=== PATIENT | female | born 1995 | race Caucasian/White ===

== ENCOUNTER 2024-02-21 05:10 | Observation (INO) ==
[2024-02-21 06:53] LABS: BASOPHILS % (AUTO) 0.2 %; EOSINOPHILS # (AUTO) 0.1 10^3/uL (0.0-0.7); EOSINOPHILS % (AUTO) 0.7 %; HCT - HEMATOCRIT 22.8 % (37.0-47.0); HGB - HEMOGLOBIN 7.7 g/dL (12.0-16.0); LYMPHOCYTES # (AUTO) 1.8 10^3/uL (1.5-3.5); LYMPHOCYTES % (AUTO) 17.7 %; MEAN CORPUSCULAR HEMOGLOBIN 32.1 pg (27.0-31.0); MEAN CORPUSCULAR HGB CONC 33.8 g/dL (32.0-36.0); MEAN PLATELET VOLUME 9.9 fL (7.9-10.8); MONOCYTES # (AUTO) 0.7 10^3/uL (0.0-1.0); NEUTROPHILS # (AUTO) 7.4 10^3/uL (1.5-6.6); NEUTROPHILS % (AUTO) 73.4 %; PLT - PLATELET COUNT 255 10^3/uL (130-450); RED CELL DISTRIBUTION WIDTH 13.7 % (12.0-15.0); WHITE BLOOD COUNT 10.1 x10^3/uL (4.8-10.8)
[2024-02-21] MEDS ORDERED: SODIUM CHLORIDE FLUSH 0.9% 10 ML SYRINGE IVP PRN ×2 (08:06→08:15)
[2024-02-21] MEDS ORDERED: CALCIUM CARBONATE CHEW 500 MG TABLET PO PRN (08:15)
[2024-02-21] MEDS ORDERED: ONDANSETRON ODT 4 MG TABLET PO PRN (08:15)
[2024-02-21 08:50] LABS: PARTIAL THROMBOPLASTIN TIME 24.6 secs (24.9-33.3)
[2024-02-21 08:54] LABS: INR 1.1 (0.8-1.2); PT - PROTHROMBIN TIME 11.6 secs (9.9-12.6)
[2024-02-21] MEDS ORDERED: SODIUM CHLORIDE FLUSH 0.9% 10 ML SYRINGE IVP SCH (09:00)
--- NOTE | 2024-02-21 09:31 | HISTORY & PHYSICAL EXAMINATION ---
Admit History Visit Reason Visit Reason: Other (vaginal bleeding) Smoking Status: Never smoker Other Maternal History Other Maternal History: Heather is a 28 yo at 20w2d who presented this morning with vaginal bleeding. She is being admitted for observation for blood transfusion as well as further monitoring of bleeding. Heather has a known subchorionic hemorrhage and has intermittent episodes of bleeding throughout thus far. She reports daily light bleeding, but tonight, had large gush which she estimates what approximately 1/2 cup of blood. Continue light bleeding after that. She reports very mild cramping which is not new. Also some pain in her right mid back, feels like a muscle cramp. Denies SOB, dizziness, dysuria. She has been seen in our office multiple times for bleeding as well as at . She has an MFM consult next week on 02/27. Heather reports that while at , inpatient admission at 22 weeks was suggested in case of need for delivery. Termination of was also offered as an option, however, Heather is not interested in termination. FHTs present and normal on admission. HPI Current : Vital Signs Temperature 98.1 F 02/21/24 05:27 Pulse Rate 87 02/21/24 05:27 Respiratory Rate 16 02/21/24 05:27 Blood Pressure 116/69 02/21/24 05:27 O2 Saturation 99 02/21/24 05:27 Meds/Allgy Home Medications Ambulatory Orders Medication Instructions Recorded Confirmed vits no.126-ferrous fum tab PO 01/01/24 02/19/24 28 mg iron-folic acid 800 mcg tablet (Classic ) acetaminophen 325 mg tablet 325 mg PO Q6H PRN 02/01/24 02/19/24 (Tylenol) acetaminophen 500 mg tablet 500 mg PO Q6H PRN 02/01/24 02/19/24 (Tylenol Extra Strength) progesterone micronized 200 mg 200 mg vaginal QPM #30 caps 02/09/24 02/19/24 capsule ferrous gluconate 240 mg (27 mg 240 mg PO QDAY #90 tabs 02/17/24 02/19/24 iron) tablet (Ferate) Allergies Allergies Allergy/AdvReac Type Severity Reaction Status Date / Time No Known Drug Allergies Allergy Verified 02/03/24 17:30 [facility] Social History Social History (Updated 02/01/24 @ 08:18 by Erma Torres RN) Smoking Status: Never smoker Living arrangement: At home Marital Status: Single Living Condition: With spouse/s.o. Support Person: No Relationship: Do you feel safe in your home environment?: Yes Suffered physical, verbal, emotional, or financial abuse?: No History of Abuse: No ETOH Use: None Substance Use: denies use POLST Patient has POLST: No Physical Abdominal Exam Vital Signs: Temp Pulse Resp BP Pulse Ox 98.1 F 87 16 116/69 99 02/21/24 05:27 02/21/24 05:27 02/21/24 05:27 02/21/24 05:27 02/21/24 05:27 Other Notes Labor Progress Note/Additional Text: Gen: NAD Chest: non labored respirations Abd: gravid, non tender, no fundal tenderness Back: no CVA tenderness Spec: on speculum exam, approx 15cc of dark blood in vault and 1-2cm of thin clot at the external os. With removal of blood in vault, no further ongoing bleeding. SVE: gentle SVE performed, cervix soft but closed Plan for Labor Plan For Labor I expect patient to be DC'd or transferred within 96 hours.: Yes Conclusion/Plan Problem List (1) Vaginal bleeding during : (2) Subchorionic hemorrhage: (3) Anemia complicating : Plan - No ongoing heavy bleeding, however, given significant decrease in H/H, recommended admission for observation for possible blood transfusion as well as monitoring of bleeding. - Risks/benefits of blood transfusion were reviewed, as well as risk of not giving blood if she were to have further future significant bleeding episodes. She did accept blood transfusion today with plan for 2u pRBCs. - Strict pad counts Lab Results Lab results reviewed: Yes 02/21/24 06:38 Other Lab Results: Coag studies reviewed. Diagnostic Imaging Results Diagnostic Imaging Results: positive Other (Ultrasound obtained, report and images reviewed with increasing size of subchorionic hematoma.)
--- NOTE | 2024-02-21 10:06 | Ultrasound Report ---
PROCEDURE: US OB Follow up INDICATIONS: vaginal bleeding OUTSIDE/PRIOR DATING DATA: Last menstrual period (LMP): Unknown. LMP-based estimated date of delivery (BARI): Unknown. First dating scan (date and location): 02/01/2024. Estimated date of delivery (BARI) from first dating scan: 07/08/2024. TECHNIQUE: Real-time scanning was performed of the fetus, with image documentation and biometric measurements. Endovaginal scanning: Not performed. COMPARISON: 02/01/2024 FINDINGS: General: A single living intrauterine gestation is present. Presentation: Vertex Placenta: Placental position is posterior, without previa. Amniotic fluid index: 6.6 cm, low for gestational age. heart rate: 136 beats per minute. Maternal cervical canal: Closed and short measuring 2.4 cm with possible moving internal contents. Estimated gestational age from initial scan: 20 weeks, 2 days Other: There is a large anterior hemorrhage to 10 cm spanning the entire length of the gestational sa c. IMPRESSION: 1.Single live intrauterine consistent with 20 weeks and 2 days. 2.Large anterior hemorrhage measuring up to 10 cm spanning the entire length of the gestational sac. 3.Amniotic fluid index of 6.6 cm which is less than the 0.5th percentile. 4.Cervix is closed and shortened measuring 2.4 cm with possible moving internal contents. Agree with preliminary interpretation provided to the ordering provider by the ultrasound technologis t. Reviewed by: Obinna Valle MD on 02/21/2024 10:05 AM PST Approved by: Obinna Valle MD on 02/21/2024 10:05 AM PST Station ID: [id number]
--- NOTE | 2024-02-21 10:07 | Ultrasound Report ---
PROCEDURE: US OB Transvaginal INDICATIONS: cervical length OUTSIDE/PRIOR DATING DATA: Last menstrual period (LMP): Unknown. LMP-based estimated date of delivery (BARI): Unknown. First dating scan (date and location): 02/01/2024. Estimated date of delivery (BARI) from first dating scan: 07/08/2024. TECHNIQUE: Real-time scanning was performed of the fetus, with image documentation and biometric measurements. Endovaginal scanning: Not performed. COMPARISON: 02/01/2024 FINDINGS: General: A single living intrauterine gestation is present. Presentation: Vertex Placenta: Placental position is posterior, without previa. Amniotic fluid index: 6.6 cm, low for gestational age. heart rate: 136 beats per minute. Maternal cervical canal: Closed and short measuring 2.4 cm with possible moving internal contents. Estimated gestational age from initial scan: 20 weeks, 2 days Other: There is a large anterior hemorrhage to 10 cm spanning the entire length of the gestational sa c. IMPRESSION: 1.Single live intrauterine consistent with 20 weeks and 2 days. 2.Large anterior hemorrhage measuring up to 10 cm spanning the entire length of the gestational sac. 3.Amniotic fluid index of 6.6 cm which is less than the 0.5th percentile. 4.Cervix is closed and shortened measuring 2.4 cm with possible moving internal contents. Agree with preliminary interpretation provided to the ordering provider by the ultrasound technologis t. Reviewed by: Obinna Valle MD on 02/21/2024 10:06 AM PST Approved by: Obinna Valle MD on 02/21/2024 10:06 AM PST Station ID: [id number]
[2024-02-21] MEDS: diphenhydrAMINE 25 MG CAPSULE PO SCH (10:28)
[2024-02-21] MEDS: ACETAMINOPHEN 325 MG TABLET PO SCH (10:29)
[2024-02-21 14:09] VITALS: O2SAT 99
[2024-02-21] MEDS: ACETAMINOPHEN 500 MG TABLET PO PRN (16:51)
[2024-02-21 17:42] VITALS: TEMP 98.4
[2024-02-21 20:31] VITALS: BP 116/69
--- NOTE | 2024-02-21 21:39 | Discharge Summary ---
Discharge Summary Admit Date: 02/21/24 Discharge Date: 02/21/24 Discharging Provider: Kiet Peraza MD [facility] History of Present Illness: Admission Diagnosis: - SIUP at 20w2d - Vaginal bleeding in - BLood loss anemia Discharge Diagnosis: - Same Procedures: transfusion 2u pRBCs Hospital Course: Heather presented at 20w2d with vaginal bleeding in the setting of known subchorionic hemorrhage, has had multiple bleeding episodes throughout her thus far. Significant drop in H/H noted from prior values, therefore blood transfusion was recommended as well as further monitoring of bleeding. She received 2units of pRBCs, had no further heavy bleeding. Ultrasound was performed which showed increasing size of subchorionic hemorrhage. Possible termination of vs admission around viability was discussed with her during recent evaluation at . She is hopeful for admission around viability. With no further heavy bleeding, Heather was comfortable with discharge home this evening with strict bleeding precautions. Lives here in [place], close to hospital. She has follow up in our clinic on Monday as well as [facility] appointment next week. OBJECTIVE: Vital signs reviewed GENERAL: NAD CHEST: non labored respirations ABD: soft, non tender, gravid LAB & IMAGING STUDIES: See below PLAN: Plan for discharge home with follow up in clinic on Monday. Bleeding/anemia precautions reviewed. Consider repeat CBC on Monday. ALLERGIES Allergies Allergy/AdvReac Type Severity Reaction Status Date / Time No Known Drug Allergies Allergy Verified 02/03/24 17:30 MEDICATIONS Ambulatory Orders Medication Instructions Recorded Confirmed vits no.126-ferrous fum tab PO 01/01/24 02/19/24 28 mg iron-folic acid 800 mcg tablet (Classic ) acetaminophen 325 mg tablet 325 mg PO Q6H PRN 02/01/24 02/19/24 (Tylenol) acetaminophen 500 mg tablet 500 mg PO Q6H PRN 02/01/24 02/19/24 (Tylenol Extra Strength) progesterone micronized 200 mg 200 mg vaginal QPM #30 caps 02/09/24 02/19/24 capsule ferrous gluconate 240 mg (27 mg 240 mg PO QDAY #90 tabs 02/17/24 02/19/24 iron) tablet (Ferate) LABS 02/21/24 06:38 TIME SPENT Time Spent in Discharge (Minutes): 35 Discharge Plan Discharge Patient Disposition: Home, Self Care Activity Restrictions/Additional Instructions: Return to the hospital if experiencing heavy, persistent bleeding, soaking more than 1 pad an hour for 2 hours or if you experience symptoms of anemia such as shortness of breath or dizziness. Follow up on Monday for your next routine visit. Prescriptions: No Action progesterone micronized 200 mg capsule 200 mg vaginal QPM Qty: 30 2RF ferrous gluconate [Ferate] 240 mg (27 mg iron) tablet 240 mg PO QDAY Qty: 90 4RF Rx Instructions: any covered iron supplement is fine Classic 28 mg iron- 800 mcg tablet PO acetaminophen [Tylenol] 325 mg tablet 325 mg PO Q6H PRN acetaminophen [Tylenol Extra Strength] 500 mg tablet 500 mg PO Q6H PRN .
== END 2024-02-21 17:40 | disposition home or self-care (01) ==
LOC: WFO 05:10 → FBP 05:10 → WFO 09:02 → FBP 09:05 → WFO 17:40
PROVIDERS: ADMIT Obstetrics & Gynecology; ATTEND Obstetrics & Gynecology
DX: Z3A.20 20 weeks gestation of pregnancy; O46.8X2 Other antepartum hemorrhage, second trimester; D50.0 Iron deficiency anemia secondary to blood loss (chronic)

== ENCOUNTER 2025-01-01 16:07 | Inpatient (IN) ==
[2025-01-01] MEDS ORDERED: ACETAMINOPHEN 500 MG TABLET PO PRN (16:20)
[2025-01-01] MEDS ORDERED: METHYLERGONOVINE 0.2 MG/ML VIAL IM PRN (16:20)
[2025-01-01] MEDS ORDERED: LABETALOL 20 MG/4 ML SYRINGE IVP PRN ×3 (16:20)
[2025-01-01] MEDS ORDERED: TERBUTALINE 1 MG/ML VIAL SUBQ PRN (16:20)
[2025-01-01] MEDS ORDERED: ONDANSETRON 4 MG/2 ML VIAL IVP PRN (16:20)
[2025-01-01] MEDS ORDERED: CARBOPROST TROMETHAMINE 250 MCG/ML VIAL IM PRN (16:20)
[2025-01-01] MEDS ORDERED: fentaNYL 100 MCG/2 ML VIAL IVP PRN (16:20)
[2025-01-01] MEDS ORDERED: hydrALAZINE INJ 20 MG/ML VIAL IVP PRN ×2 (16:20)
[2025-01-01] MEDS ORDERED: ONDANSETRON ODT 4 MG TABLET PO PRN (16:20)
[2025-01-01] MEDS ORDERED: TRANEXAMIC ACID IN NACL 1,000 MG/100 ML BAG IV PRN (16:20)
[2025-01-01] MEDS ORDERED: SODIUM CHLORIDE FLUSH 0.9% 10 ML SYRINGE IVP PRN (16:20)
[2025-01-01] MEDS ORDERED: OXYTOCIN 10 UNIT/ML VIAL IM PRN (16:20)
[2025-01-01 16:51] LABS: HCT - HEMATOCRIT 36.2 % (37.0-47.0); HGB - HEMOGLOBIN 12.2 g/dL (12.0-16.0); MEAN PLATELET VOLUME 10.6 fL (7.9-10.8); NRBC ABSOLUTE COUNT (AUTO) 0.00 x10^3/uL; NUCLEATED RED BLOOD CELLS AUTO 0.0 /100WBC; PLT - PLATELET COUNT 223 10^3/uL (130-450); RED CELL DISTRIBUTION WIDTH 13.2 % (12.0-15.0)
[2025-01-01] MEDS ORDERED: SODIUM CHLORIDE FLUSH 0.9% 10 ML SYRINGE IVP SCH (17:00)
[2025-01-01 17:08] LABS: ALT ALANINE AMINOTRANSFERASE 13.0 IU/L (10-60); AST ASPARTATE AMINOTRANSFERASE 13.0 IU/L (10-42); BUN - BLOOD UREA NITROGEN 9.0 mg/dL (6-20); CARBON DIOXIDE - CO2 24.0 mmol/L (21-32); CREATININE 0.4 mg/dL (0.6-1.3); GFR - MDRD 190.0 (>89)
--- NOTE | 2025-01-01 18:16 | HISTORY & PHYSICAL EXAMINATION ---
Admit History Visit Reason Visit Reason: Other (Elective induction of labor) Smoking Status: Never smoker Other Maternal History Other Maternal History: HPI: Heather is a 29 yo at 39w3d by LMP c/w 1st trimester US who is admitted for elective induction of labor. Reports overall feeling well tonight. She had a membrane sweep in clinic yesterday, had just a little spotting. Occasional contractions but not really painful. Baby moving well. She was on the list for elective IOL at but there are several inductions ahead of her, opted for induction of labor here. Last growth US: 11/29/24 EFW 2950g, 89%tile, AC measuring 99%tile. monitoring form, copied from record: History of second trimester loss: Started with bleeding and persisted for many weeks until eventually labor. EFW 11/29: EFW 89 percentile, AC: 99th percentile. HC 50th percentile. Periumbilical pain: No identifiable cause. Pre- Weight: 146 lb BMI: 22 (25-35 pounds) Blood type: O+ Antibody: Negative CBC: PLT 253 13.0/38.5 RUB: Equivocal VZV: Immune HBsAg: negative HepC: NR RPR/AB-EIA: NR HIV: NR PAP:11/25/2023-normal per pt GC/CT: 06/19/2024 HSV: denies Genetic testing: MaterniT Neg; AFP- Negative Covid:declined 12/09/24 Flu:declined 12/09/24 FAS: Placenta:Anterior without previa. Venous lakes seen Cord:Three-vessel cord ÁNGEL:Normal, MVP: 5.4 cm EFW:273 g, 33rd percentile 50gm OGCT: 95 TDAP:10/15 Breast Pump:10/15 RSV: declines 12/17/24, discussed Beyfortus briefly. 3rd trimester CBC: 12.6/38.2/221 3rd trimester RPR NR GBS:12/09/24 Negative Delivery plan: 39 week induction at - scheduled for 01/01 Contraception: declines discussion 12/17 PE: Vitals signs reviewed in [facility] Gen: NAD Resp: non labored respirations Abd: gravid, non tender. EFW 3800g Ext: no LE edema SVE: 3/50/-2, moderate, posterior Bedside US: cephalic presentation confirmed monitoring: FHTs: 140s bpm baseline, + accel, - decel, mod variability [place]: irregular FHTs: Cat 1 Labs: T&S, CBC, CMP reviewed A/P: 29 yo at 39w3d: - Elective IOL - GBS neg - AC 99%tile We discussed IOL process and consent was reviewed and signed. Discussed options for initiating IOL, plan to start with pitocin given starting cervical exam and she does agree. We discussed possible AROM with next SVE in 4-6 hours. Pain management at her request - at this time not planning for pain meds/epidural. Kiet Peraza MD Meds/Allgy Home Medications Ambulatory Orders Medication Instructions Recorded Confirmed vits no.126-ferrous fum 1 tab PO DAILY 12/31/24 28 mg iron-folic acid 800 mcg tablet (Classic ) acetaminophen 325 mg tablet 325 mg PO Q6H PRN fever or pain 02/01/24 12/31/24 (Tylenol) ferrous gluconate 240 mg (27 mg 240 mg PO QDAY #90 tab s 07/17/24 12/31/24 iron) tablet (Ferate) magnesium PO 08/29/24 12/31/24 ascorbic acid (vitamin C) 500 mg 500 mg PO QDAY #30 ta bs 09/30/24 12/31/24 tablet cyanocobalamin-liver extract tablet tab PO 12/05/24 Allergies Allergies Allergy/AdvReac Type Severity Reaction Status Date / Time No Known Drug Allergies Allergy Verified 12/17/24 09:44 PFSH Active Problems All Active Problems (Updated 01/01/25 @ 16:20 by Kiet Peraza MD) 39 weeks gestation of (Acute) Anemia (Acute) Depression (Acute) Encounter for induction of labor (Acute) History of loss (Acute) Supervision of high risk , antepartum (Acute) Vaginal discharge (Acute) Medical History Medical History (Updated 01/01/25 @ 16:20 by Kiet Peraza MD) Parainfluenza virus infection (06/24/24) Surgical History Surgical History (Updated 07/04/24 @ 17:47 by Luana Schmidt MD) Cyst of eye Surgery as a child Family History Family History (Updated 06/04/24 @ 11:25 by Lisandra Baumann RN) Sister Kidney disease Social History Social History (Updated 10/15/24 @ 19:59 by Juan Antonio Hutchison MD) Smoking Status: Never smoker Do you dip or chew tobacco?: No Do you vape?: No Living arrangement: At home Marital Status: Single Living Condition: With spouse/s.o. Support Person: No Level: Independent Do you feel safe in your home environment?: Yes History of physical, verbal, emotional, or financial abuse?: No ETOH Use: None Substance Use: denies use Are you sexually active?: Yes Occupation - Current: [employer] Patient has POLST: No Plan for Labor Plan For Labor I expect patient to be DC'd or transferred within 96 hours.: Yes Conclusion/Plan Lab Results 01/01/25 16:35 01/01/25 16:35
[2025-01-01] MEDS: OXYTOCIN/SODIUM CHLORIDE 500 ML IV SCH (18:22)
[2025-01-01] MEDS: LACTATED RINGERS 1,000 ML IV PRN (18:22)
[2025-01-02] MEDS ORDERED: ROPIVACAINE 0.2% 200 MG/100 ML BAG EP ONE (02:26)
[2025-01-02] MEDS ORDERED: NALOXONE 0.4 MG/ML VIAL IVP PRN ×3 (03:48→12:16)
[2025-01-02] MEDS ORDERED: LACTATED RINGERS 500 ML IV ONE (03:48)
[2025-01-02] MEDS ORDERED: ROPIVACAINE 0.2% 200 MG/100 ML BAG EP PRN (03:48)
[2025-01-02] MEDS ORDERED: NALBUPHINE 10 MG/ML AMP IVP PRN (03:48)
[2025-01-02] MEDS ORDERED: ONDANSETRON 4 MG/2 ML VIAL IVP PRN (03:48)
[2025-01-02] MEDS ORDERED: METOCLOPRAMIDE 10 MG/2 ML VIAL IVP PRN (03:48)
--- NOTE | 2025-01-02 03:48 | ANESTHESIA PROCEDURE NOTE ---
Pre-Anesthesia VS, & Labs Diagnosis Surgical Diagnosis:: labor induction Procedure Procedure: labor epidural Vitals Vital Signs: Temp Resp BP 36.6 C 17 122/74 01/01/25 19:15 01/01/25 20:49 01/01/25 20:49 NPO NPO: Other Is Patient ?: Yes Lab Results Current Lab Results: Laboratory Tests 01/01/25 16:35: WBC 9.2, RBC 3.80 L, Hgb 12.2, Hct 36.2 L, MCV 95.3, MCH 32.1 H, MCHC 33.7, RDW 13.2, Plt Count 223, MPV 10.6, Neut # (Auto) 6.7 H, Lymph # (Auto) 1.6, Fleming # (Auto) 0.8, Eos # (Auto) 0.1, Baso # (Auto) 0.0, Absolute Nucleated RBC 0.00, Nucleated RBC % 0.0, Sodium 135, Potassium 3.6, Chloride 103, Carbon Dioxide 24, Anion Gap 8.0, BUN 9, Creatinine 0.4 L, Estimated GFR (MDRD) 190, Glucose 102, Calcium 9.3, Total Bilirubin 0.4, AST 13, ALT 13, Alkaline Phosphatase 109, Total Protein 6.7, Albumin 3.5, Globulin 3.2, Albumin/Globulin Ratio 1.1, Blood Type O POSITIVE, Antibody Screen NEGATIVE 01/01/25 16:35 01/01/25 16:35 Meds/Allgy Home Medications Ambulatory Orders Medication Instructions Recorded Confirmed vits no.126-ferrous fum 1 tab PO DAILY 12/31/24 28 mg iron-folic acid 800 mcg tablet (Classic ) acetaminophen 325 mg tablet 325 mg PO Q6H PRN fever or pain 02/01/24 12/31/24 (Tylenol) ferrous gluconate 240 mg (27 mg 240 mg PO QDAY #90 tab s 07/17/24 12/31/24 iron) tablet (Ferate) magnesium PO 08/29/24 12/31/24 ascorbic acid (vitamin C) 500 mg 500 mg PO QDAY #30 ta bs 09/30/24 12/31/24 tablet cyanocobalamin-liver extract tablet tab PO 12/05/24 Allergies Allergies Allergy/AdvReac Type Severity Reaction Status Date / Time No Known Drug Allergies Allergy Verified 12/17/24 09:44 PFSH Active Problems All Active Problems (Updated 01/01/25 @ 16:20 by Kiet Peraza MD) Encounter for induction of labor (Acute) 39 weeks gestation of (Acute) Vaginal discharge (Acute) History of loss (Acute) Supervision of high risk , antepartum (Acute) Anemia (Acute) Depression (Acute) Medical History Medical History (Updated 01/01/25 @ 16:20 by Kiet Peraza MD) Parainfluenza virus infection (06/24/24) Surgical History Surgical History (Updated 07/04/24 @ 17:47 by Luana Schmidt MD) Cyst of eye Surgery as a child Family History Family History (Updated 06/04/24 @ 11:25 by Lisandra Baumann RN) Sister Kidney disease Social History Social History (Updated 10/15/24 @ 19:59 by Juan Antonio Hutchison MD) Smoking Status: Never smoker Do you dip or chew tobacco?: No Do you vape?: No Living arrangement: At home Marital Status: Single Living Condition: With spouse/s.o. Support Person: No Level: Independent Do you feel safe in your home environment?: Yes History of physical, verbal, emotional, or financial abuse?: No ETOH Use: None Substance Use: denies use Are you sexually active?: Yes Occupation - Current: [employer] Patient has POLST: No Anesthesia Exam (Expanded) Exam General: Alert, Oriented x3 and Moderate distress Dental: WNL Mouth Opening: Greater than 4 Fingerbreadths Neck Mobility: Normal Mallampati classification: I Thyromental Distance: greater than 6 cm Respiratory: Lungs clear Cardiovascular: Regular rate Exam Exam Vital Signs: Vital Signs x48h Resp BP 01/01/25 20:49 17 122/74 Plan Plan Anesthesia Type: Epidural Consent for Procedure(s) Verified and Reviewed: Yes Code Status: Attempt Resuscitation ASA Classification ASA classification: 2-Mild systemic disease Is this case an emergency?: No
[2025-01-02] MEDS: ePHEDrine 50 MG/ML VIAL IVP PRN (04:20)
[2025-01-02] MEDS: CALCIUM CARBONATE CHEW 500 MG TABLET PO PRN (04:45)
--- NOTE | 2025-01-02 07:22 | PROVIDER PROGRESS NOTE ---
Labor Progress Note Labor Progress Note Labor Progress Note/Additional Text: I came to bedside at approximately 0020AM for AROM. Heather did agree to proceed. AROM performed with small amount of blood-tinged fluid. SVE at that time was 4/70/-2 and pitocin was at 4. I was called by RN at approximately 0135 that Heatehr was 8cm and feeling the urge to push and I was requested at bedside. At bedside, SVE found to be 5/80/-2. At this point, Heather decided that she would like an epidural. Pitocin was turned off to give Heather some relief as she was radha every 2 min and very uncomfortable. She has progressed overnight to 7/100/-1 with most recent RN exam. This morning, she has had intermittent Cat 2 FHTs with period of tachycardia and possible late decelerations. She was give IV fluid bolus, changed positions, and I requested that anesthesia assess as her blood pressures are below her base line (110's/60-70's). FHTs have now improved with resolved tachycardia, moderate variability and accelerations present. Requested that RN restart pitocin per protocol if contractions space out Kiet Peraza MD
[2025-01-02] MEDS: OXYTOCIN/SODIUM CHLORIDE 500 ML IV PRN (10:43)
[2025-01-02] MEDS ORDERED: LABETALOL 20 MG/4 ML SYRINGE IVP PRN ×4 (11:01→12:16)
[2025-01-02] MEDS ORDERED: IBUPROFEN 600 MG TABLET PO PRN ×2 (11:01→12:16)
[2025-01-02] MEDS ORDERED: oxyCODONE 5 MG TABLET PO PRN (11:01)
[2025-01-02] MEDS ORDERED: SIMETHICONE CHEW 80 MG TABLET PO PRN ×2 (11:01→12:16)
[2025-01-02] MEDS ORDERED: OXYTOCIN/SODIUM CHLORIDE 500 ML IV PRN ×2 (11:01→12:16)
[2025-01-02] MEDS ORDERED: ACETAMINOPHEN 500 MG TABLET PO PRN (11:01)
[2025-01-02] MEDS ORDERED: WITCH HAZEL/GLYCERIN 1 PAD TOP PRN (11:01)
[2025-01-02] MEDS ORDERED: HYDROCORTISONE 1% CREAM 28 GM TUBE TOP PRN (11:01)
[2025-01-02] MEDS ORDERED: LABETALOL 5 MG/1 ML 20 ML MDV IVP PRN ×2 (11:01→12:16)
[2025-01-02] MEDS ORDERED: hydrALAZINE INJ 20 MG/ML VIAL IVP PRN ×4 (11:01→12:16)
--- NOTE | 2025-01-02 11:13 | DELIVERY NOTE ---
OB Labor and Delivery Note Labor Labor: Induced by oxytocin Delivery Method Delivery Method: Spontaneous vaginal delivery Presentation Presentation: Vertex and KATHLEEN - right occiput anterior Nuchal Cord Nuchal Cord: Present (loose) Amniotic Fluid Description Amniotic Fluid Description: Clear Episiotomy Type Episiotomy Type: None Laceration Laceration: 2nd degree, Labial and Periurethral (bilateral) Suture Suture Size: 3-0 (rapide) Delivery Outcome Delivery Date: 01/02/25 Delivery Time: 10:39 Delivery Outcome: Livebirth Galt : Placed in direct skin contact with mother, Stimulated and Warmed sex: Female Cord Cord: 3 vessels Placenta Placenta: Intact Estimated Blood Loss Estimated Blood Loss (in cc): 150 Post Delivery Events Post Delivery Events: No post delivery events Delivery Comments (Free Text/Narrative) Delivery Comments (Free Text/Narrative): Heather presented for elective induction of labor. She was 3/50/-2 on presentation, and induction was started with pitocin at 1822pm. AROM was performed at 0020am and at that time she was 4cm. Pitocin was discontinued at 0202am due to frequent contractions and Heather's discomfort, desiring epidural at at that point. After that point, she progressed on her own mechanism. She was complete at 0913am and started pushing at 0930am. She pushed with excellent effort with steady progress and delivered at 1039am. With delivery of the head, a loose nuchal cord was noted. The anterior shoulder delivered easily with maternal effort and gentle downward pressure followed by the posterior shoulder and the remainder of the body. The infant was placed on the Heather's chest. The cord was clamped after it stopped pulsing, which was at about 5 mintues. Pitocin was started during this period. The cord was clamped times two and then cut by Heather's . Cord blood collected. The placenta was delivered intact with gentle traction on the cord. Good uterine tone noted. The bilateral periurethral lacertions were hemostatic and not repaired. A very small 2nd degree laceration was noted at hymenal ring and was reapproximated with a single figure of eight stitch of 3-0 Rapide. Perineal hemostasis noted. APGARS 8/9, weight pending.
--- NOTE | 2025-01-02 11:56 | ANESTHESIA PROCEDURE NOTE ---
Anesthesia Epidural Template Exam Epidural Medication Information: Epidural Medications Continuous Infusion Rate (mL/ 8 hr) Bolus Amount 5 Other Comments Other Comments: Nursing staff concerned tachycardia due to maternal hypotension. BP 108/65. T-10 level, patient reports pain with contractions 2/10. Epidural decreased to 7ml/hr.
[2025-01-02] MEDS: ACETAMINOPHEN 500 MG TABLET PO PRN (12:00)
--- NOTE | 2025-01-02 12:36 | PHARMACY PROGRESS NOTE ---
Best Possible Medication History Admit Date and Time: 01/01/25 [id number] Home Medications Medication Instructions Recorded Confirmed Type vits no.126-ferrous fum 1 tab PO DAILY 01/02/25 History 28 mg iron-folic acid 800 mcg tablet (Classic ) acetaminophen 325 mg tablet 325 mg PO Q6H PRN fever or pain 02/01/24 01/02/25 History (Tylenol) ferrous gluconate 240 mg (27 mg 240 mg PO QDAY #90 tab s 07/17/24 01/02/25 Rx iron) tablet (Ferate) magnesium 1 tab PO DAILY 08/29/2412/15 History ascorbic acid (vitamin C) 500 mg 500 mg PO QDAY #30 ta bs 09/30/24 01/02/25 Rx tablet choline bitartrate 27.5 mg-vit B6 1 tab PO DAILY 01/0201/02/25 History 0.2 mg-vit B12 0.25 mcg chew tablet Processed by: Pharmacy Medications reviewed in ED?: No Medication History completed: Yes Patient Interview: Pt refused [facility] Statement: As the person ultimately responsible for medication therapy, providers are able to order a medication from an existing home medication list in [facility] via the "Reconcile Routine" prior to Confirmation of that medication by it support specialist. Such practice is discouraged except when the physician, in their clinical judgment, deems that a medical need exists for a medication without regard to previous use.
[2025-01-02] MEDS ORDERED: DOCUSATE SODIUM 100 MG CAPSULE PO SCH (21:00)
[2025-01-03] MEDS: DOCUSATE SODIUM 100 MG CAPSULE PO SCH (20:12)
--- NOTE | 2025-01-03 21:21 | PROVIDER PROGRESS NOTE ---
Progress Note Progress Note Progress Note: Patient doing well but tentative. anxious. moving slowly. working on breast feeding. vs stable. a/p ppd 1 after vaginal delivery yesterday late morning. will plan for discharge tomorrow.
[2025-01-04 01:41] VITALS: O2SAT 99
[2025-01-04 11:21] VITALS: BP 110/64; TEMP 98.2
--- NOTE | 2025-01-04 14:13 | Labor Flowsheet ---
Labor Flowsheet Datetime Report Generated by CPN: 01/04/2025 14:13 Datetime: 01/04/2025 10:05 VITAL SIGNS NBP Sys/Jena/Mean (mmHg): 110 : 64 : 75 Pulse: 92 Datetime: 01/02/2025 13:28 Respirations: 14 Datetime: 01/02/2025 13:04 SpO2 (%): 97 Datetime: 01/02/2025 12:49 Temperature Route: Oral Datetime: 01/02/2025 11:45 Stage of : Recovery Datetime: 01/02/2025 11:44 LaborFlag: Labor Datetime: 01/02/2025 11:00 Temperature (C): 36.9 Datetime: 01/02/2025 10:50 MEDICATIONS Cervical Ripening Agents: Cytotec @ Datetime: 01/02/2025 10:43 Stage 2 Comments: pit up at 250ml/hr per provider Datetime: 01/02/2025 10:38 UTERINE ACTIVITY Monitor Mode: External Frequency (min): 1-3 Quality: Strong Duration (sec): 40-50 Pattern: Normal: <= 5 Contractions in 10 Minutes Resting Tone (Palpate): Relaxed Comments: FHR 145 in between pushing, variable noted Datetime: 01/02/2025 10:30 ASSESSMENT A Monitor Mode: External US FHR Baseline Rate : 150 Decelerations: Variable Oxygen Method: Room Air Datetime: 01/02/2025 10:29 Patient Care Comments: lithotomy Datetime: 01/02/2025 10:15 Patient Position/Activity: Right Lateral Datetime: 01/02/2025 09:56 Monitor Interventions for FHR: Ultrasound Adjusted Datetime: 01/02/2025 09:45 Variability: Moderate 6-25 bpm Accelerations: None Datetime: 01/02/2025 09:29 FHR Baseline Changes: No Baseline Change Category: Category I Datetime: 01/02/2025 09:13 VAGINAL EXAM Dilatation (cm): 10.0 Effacement (%): 100 Station: 1 Exam by: [email or web address] Datetime: 01/02/2025 08:20 PAIN Pain Scale: 5 Pain Assessment Comments: pt. pushed pcea Datetime: 01/02/2025 07:41 Communication Comments: Discussed with provider next check. Will recheck ce at 0840ish unless pt. feels like she needs to push Datetime: 01/02/2025 07:06 Provider Reviewed Strip: Yes Datetime: 01/02/2025 07:05 COMMUNICATION Communication: Report Given to @ Day shift Datetime: 01/02/2025 07:00 Contraction Comments: interrupted strip pattern d/t maternal movement Datetime: 01/02/2025 06:55 Anesthesia Comments: MARQUIS Latham called for bedside consult per OB providor. pt recived epidural around 2am with a rate started at 10 an hour. Later after her epidural her BP droped to mid to low 90's over 50's MARQUIS Mohan ordered 10ml of epherine and lowered her rate to 8 an hour due to featl distress. No s/s from maternal. OB is requesting rate to be turned down again. CNRA on way to bedside Datetime: 01/02/2025 06:40 TEACHING Instructional Method: Verbal Plan of Care: Plan of Care Discussed Datetime: 01/02/2025 06:39 Actions for Decelerations: IV Bolus Vaginal Bleeding: Normal Show Cervix, Consistency: Soft Cervix, Position: Midposition Datetime: 01/02/2025 06:01 Nausea/Vomiting: Denies Datetime: 01/02/2025 05:32 Labor/Induction: Interventions; Activity Datetime: 01/02/2025 05:22 PATIENT CARE IV/Blood Work: IV Bolus Started Datetime: 01/02/2025 05:11 Monitor Interventions for UA: [place] Adjusted Datetime: 01/02/2025 05:01 Pitocin Checklist: At Least 1 Acceleration of 15 bpm x 15 Seconds in 30 Minutes or Adequate Variability; No More than 1 Late Deceleration Occurred in Past 30 Minutes; No More than 2 Variable Decelerations > 60 Seconds in Duration and decreasing >60 bpm in 30 minutes; No More than 5 Uterine Contractions in 10 Minutes for any 20 Minute Interval; Uterus Palpates Soft between Contractions; IUPC Resting Tone less than 25 mmHg Datetime: 01/02/2025 04:20 Medications: Ephedrine Teaching Comments: Pt melissa any side effects of low BP. Pt edu about medication to help raise BP due to baby not responding well to low bp. Pt understands and has no questions. Datetime: 01/02/2025 04:17 Provider Notified (Name): M. Aube, FLIGHT DYNAMICIST Datetime: 01/02/2025 04:02 I/O Interventions: Vang Cath Inserted Datetime: 01/02/2025 03:28 Pain Coping: Sleeping Datetime: 01/02/2025 03:01 Epidural Procedure: Completed Datetime: 01/02/2025 02:38 PROCEDURE TIME OUT Procedure Verify: Correct Patient Position Epidural Positioning: Sitting Datetime: 01/02/2025 02:31 ANESTHESIA Anesthesia Plans: Epidural Pain Management: Epidural Datetime: 01/02/2025 01:33 Notification Reason: Labor Status Datetime: 01/02/2025 01:28 STAGE 2 Pushing: Urge to Push Datetime: 01/02/2025 00:29 Pain Presence: Intermittent Pain Type: Sharp; Contraction Pain Location: Perineum MATERNAL ASSESSMENT Level of Consciousness: Alert DTR's/Clonus: No Clonus Headache: Denies Breath Sounds, Left: Clear and Equal Breath Sounds, Right: Clear and Equal RUQ Epigastric Pain: Denies Datetime: 01/02/2025 00:22 Hygiene: Gunjan Care Datetime: 01/02/2025 00:20 Membrane Status: Ruptured Membranes Rupture Method: Artificial Amniotic Fluid Color: Clear Amniotic Fluid Amount: Small Amniotic Fluid Odor: None Membrane Comments: blood tinged Datetime: 01/02/2025 00:17 Unit Routine: Monitoring Related: Activity and Rest Datetime: 01/01/2025 17:55 Vaginal Exam Comments: med, posterior
--- NOTE | 2025-01-04 19:03 | Discharge Summary ---
Discharge Summary Admit Date: 01/01/25 Discharge Date: 01/04/25 Discharging Provider: Luana Schmidt MD Code Status: Attempt Resuscitation DIAGNOSES Admission Diagnoses: at 39 weeks history of loss. encounter for labor induction Discharge Diagnoses with Status of Each Condition: term delivered vaginally with no complications. HPI History of Present Illness: 2nd . First was complicated by multiple episodes of vaginal bleeding and ultimately delivery at 20 weeks at in mid Feb 2024. This has been quite uncomplicated except the anxiety about the last . Baby EFW was large. HOSPITAL COURSE Hospital Course: Admitted for labor induction. She received miso that AROM at 0200. 5 cm and received epidural. proceeded to complete and pushed for about 1 hr to deliver live female infant weighing 3637 grams. about 1100 on 01/11. Apgars were good. Post , patient elected to stay until PPD 2 to get extra support but by this am was very ready to get out of the hopsital, feeling she needed to get outside in fresh air. She was discharged about noon. ALLERGIES Allergies Allergy/AdvReac Type Severity Reaction Status Date / Time No Known Drug Allergies Allergy Verified 12/17/24 09:44 MEDICATIONS Ambulatory Orders Medication Instructions Recorded Confirmed vits no.[id number]-ferrous fum 1 tab PO DAILY 01/02/25 28 mg iron-folic acid 800 mcg tablet (Classic ) acetaminophen 325 mg tablet 325 mg PO Q6H PRN fever or pain 02/01/24 01/02/25 (Tylenol) ferrous gluconate 240 mg (27 mg 240 mg PO QDAY #90 tab s 07/17/24 01/02/25 iron) tablet (Ferate) magnesium 1 tab PO DAILY 08/29/2412/15 ascorbic acid (vitamin C) 500 mg 500 mg PO QDAY #30 ta bs 09/30/24 01/02/25 tablet choline bitartrate 27.5 mg-vit B6 1 tab PO DAILY 01/0201/02/25 0.2 mg-vit B12 0.25 mcg chew tablet PHYSICAL EXAM AT DISCHARGE Vital Signs: vss General Appearance: positive No acute distress and Alert Respiratory: positive No respiratory distress Cardiovascular: positive Regular rate & rhythm LABS 01/01/25 16:35 01/01/25 16:35 FOLLOW UP Follow Up: in clinic in 1-2 weeks. TIME SPENT Time Spent in Discharge (Minutes): 30 Discharge Plan Discharge Patient Disposition: 01 Home, Self Care Prescriptions: Continued choline bit-vit B6-vit B12 27.5 mg-0.2 mg- 0.25 mcg tablet,chewable 1 tab PO DAILY magnesium 1 tab PO DAILY ascorbic acid (vitamin C) 500 mg tablet 500 mg PO QDAY Qty: 30 6RF Classic 28 mg iron- 800 mcg tablet 1 tab PO DAILY acetaminophen [Tylenol] 325 mg tablet 325 mg PO Q6H PRN (Reason: fever or pain) ferrous gluconate [Ferate] 240 mg (27 mg iron) tablet 240 mg PO QDAY Qty: 90 4RF Rx Instructions: any covered iron supplement is fine Activity Restrictions/Additional Instructions: nothing in vagina for 6 week. OK to shower, no bath for 2 weeks. Constipation is common. Be sure to eat lots of fruits and veggie, drink lots of water. Coffee can be helpful if you like it and 1 cup is fine for baby Diet: Regular Print Language: Italian Patient Instructions: Care Vaginal ..., After a Vaginal Follow-up Care: Juan Antonio Hutchison MD [Primary Care Provider, Obstetrics/Gynecology] Vitals documented within 30 minutes of discharge?: No (not needed)
== END 2025-01-04 13:30 | disposition home or self-care (01) | DRG 805 ==
LOC: WFO 16:07 → FBP 16:09
PROVIDERS: ADMIT Obstetrics & Gynecology; ATTEND Obstetrics & Gynecology
DX: F41.9 Anxiety disorder, unspecified; Z3A.39 39 weeks gestation of pregnancy; O99.344 Other mental disorders complicating childbirth; O76 Abnormality in fetal heart rate and rhythm complicating labor and delivery; O69.81X0 Labor and delivery complicated by cord around neck, without compression, not applicable or unspecified; I95.89 Other hypotension; O99.42 Diseases of the circulatory system complicating childbirth; Z87.59 Personal history of other complications of pregnancy, childbirth and the puerperium; O70.1 Second degree perineal laceration during delivery; Z37.0 Single live birth